=== PATIENT | female | born 1950 | race African-American/Black ===

== ENCOUNTER 2016-12-06 18:59 | Emergency (ER) | payer OTHER ==
[~2016-12-06] VITALS: Ht 175.3 cm; Wt 75.0 kg
[~2016-12-06 18:59] MED LIST: Z.0.NO CURRENT MEDS
[2016-12-06 19:00] VITALS: BP 195/119; PULSE 145; RESP 24; TEMP 98.5; O2SAT 100
[2016-12-06 19:07] VITALS: BP 177/96; PULSE 95; RESP 22; O2SAT 99
--- NOTE | 2016-12-06 19:27 | PD ---
HPI Chief Complaint: Chest Pain Time Seen by Provider: 19:14 Travel History International Travel<30 days: No Contact w/Intl Traveler<30days: No Traveled to known affect area: No History of Present Illness HPI 66-year-old female presents to the emergency department by private transportation for complaint of rapid heart beat and racing of heart just prior to arrival to the emergency department. Patient states around 5 PM she was eating dinner and while sitting outside eating she started feeling her heart racing very fast. Patient did not have any shortness of breath or referred neck jaw shoulder or arm pain and denies any chest pain. Patient denies any previous history of rapid heartbeat or palpitations. Patient states she did have some associated diaphoresis but she was sitting outside and had some mild nausea without vomiting. Patient's had no recent illness. No recent long distance travel protracted bedrest her surgical procedure. No report of lower extremity pain or swelling. Patient states she exercised as usual for her morning without any similar symptomatology. Patient states she takes no prescription medications or routine medications and has no chronic medical illnesses. Patient's had one previous surgery of hysterectomy in the remote past. Patient does not smoke cigarettes does not drink alcohol. Patient denies personal history of palpitations arrhythmia CAD dyslipidemia diabetes or tobaccoism. Patient also denies history of thyroid dysfunction. Patient states she feels much better at this time. Patient states this is atypical for her. PFSH Past Medical History Narrative Medical Medical record reviewed nursing notes reviewed; hypertension, hysterectomy, family history [place], no tobacco use Cardiovascular Problems: No Hypertension: Yes Tetanus Vaccination: Never Vaccinated Influenza Vaccination: No ?: Not Menopausal: Yes Past Surgical History Gynecologic Surgery: Yes (HYST 84) Hysterectomy: Yes Family History Family Myocardial Infarction: Yes (mother @ age 71) Social History Alcohol Use: No Tobacco Use: No Substance Use: No Allergies-Medications (Allergen,Severity, Reaction): Coded Allergies: No Known Allergies (Verified , 09/20/09) Reported Meds & Prescriptions Reported Meds & Active Scripts Active Reported Timolol Opth Drops 0.5 % Soln 1 Drop EACH EYE DAILY Review of Systems Except as stated in HPI: all other systems reviewed are Neg General / Constitutional: No: Fever, Chills HENT: No: Congestion Cardiovascular: Positive: Palpitations, Tachycardia, Diaphoresis, No: Chest Pain or Discomfort, Syncope Respiratory: No: Shortness of Breath Gastrointestinal: Positive: Nausea, No: Vomiting, Diarrhea, Abdominal Pain Genitourinary: No: Flank Pain Neurologic: No: Weakness, Dizziness, Syncope Psychiatric: No: Anxiety Endocrine: No: Heat Intolerance Hematologic/Lymphatic: No: Easy Bruising Physical Exam Narrative GENERAL: SKIN: Warm and dry. HEAD: Atraumatic. Normocephalic. EYES: Pupils equal and round. No scleral icterus. No injection or drainage. ENT: No nasal bleeding or discharge. Mucous membranes pink and moist. NECK: Trachea midline. No JVD. CARDIOVASCULAR: Regular rate and rhythm. RESPIRATORY: No accessory muscle use. Clear to auscultation. Breath sounds equal bilaterally. GASTROINTESTINAL: Abdomen soft, non-tender, nondistended. Hepatic and splenic margins not palpable. MUSCULOSKELETAL: Extremities without clubbing, cyanosis, or edema. No obvious deformities. NEUROLOGICAL: Awake and alert. GCS 15. No obvious cranial nerve deficits. Motor grossly within normal limits. Five out of 5 muscle strength in the arms and legs. Sensory exam grossly intact as tested. No limb ataxia. No pronator drift. Normal speech. PSYCHIATRIC: Appropriate mood and affect; insight and judgment normal. Data Data Last Documented VS Vital Signs Date Time Temp Pulse Resp B/P (MAP) Pulse Ox O2 Delivery O2 Flow Rate FiO2 12/06/16 19:13 100 Room Air 12/06/16 19:07 95 22 177/96 (123) 12/06/16 19:00 98.5 Orders Orders Electrocardiogram (12/06/16 19:23) Basic Metabolic Panel (Bmp) (12/06/16 19:23) Ckmb (Isoenzyme) Profile (12/06/16 19:23) Complete Blood Count With Diff (12/06/16 19:23) Magnesium (Mg) (12/06/16 19:23) Prothrombin Time / Inr (Pt) (12/06/16 19:23) Act Partial Throm Time (Ptt) (12/06/16 19:23) Troponin I (12/06/16 19:23) Chest, Single Ap (12/06/16 19:23) Ecg Monitoring (12/06/16 19:23) Bilateral Bp Monitoring (12/06/16 19:23) Iv Access Insert/Monitor (12/06/16 19:23) Oximetry (12/06/16 19:23) Oxygen Administration (12/06/16 19:23) Sodium Chloride 0.9% Flush (Ns Flush) (12/06/16 19:30) Thyroid Stimulating Hormone (12/06/16 19:23) Orthostatic Vital Signs (12/06/16 19:23) Aspirin Chew (Aspirin Chew) (12/06/16 19:45) CKMB (12/06/16 19:16) CKMB% (12/06/16 19:16) Potassium Chloride (Kcl) (12/06/16 21:00) Labs Laboratory Tests Test 12/06/16 19:16 White Blood Count 8.3 TH/MM3 Red Blood Count 6.31 MIL/MM3 Hemoglobin 13.9 GM/DL Hematocrit 44.3 % Mean Corpuscular Volume 70.2 FL Mean Corpuscular Hemoglobin 22.0 PG Mean Corpuscular Hemoglobin Concent 31.3 % Red Cell Distribution Width 16.4 % Platelet Count 216 TH/MM3 Mean Platelet Volume 9.2 FL Neutrophils (%) (Auto) 39.1 % Lymphocytes (%) (Auto) 47.6 % Monocytes (%) (Auto) 11.7 % Eosinophils (%) (Auto) 1.2 % Basophils (%) (Auto) 0.4 % Neutrophils # (Auto) 3.3 TH/MM3 Lymphocytes # (Auto) 4.0 TH/MM3 Monocytes # (Auto) 1.0 TH/MM3 Eosinophils # (Auto) 0.1 TH/MM3 Basophils # (Auto) 0.0 TH/MM3 CBC Comment DIFF FINAL Differential Comment Prothrombin Time 11.0 SEC Prothromb Time International Ratio 1.0 RATIO Activated Partial Thromboplast Time 28.7 SEC Blood Urea Nitrogen 15 MG/DL Creatinine 1.02 MG/DL Random Glucose 115 MG/DL Calcium Level 9.4 MG/DL Magnesium Level 2.2 MG/DL Sodium Level 138 MEQ/L Potassium Level 3.0 MEQ/L Chloride Level 102 MEQ/L Carbon Dioxide Level 26.7 MEQ/L Anion Gap 9 MEQ/L Estimat Glomerular Filtration Rate 65 ML/MIN Total Creatine Kinase 181 U/L Creatine Kinase MB 1.6 NG/ML Troponin I LESS THAN 0.02 NG/ML Thyroid Stimulating Hormone 3rd Gen 1.770 uIU/ML MDM Medical Decision Making Medical Screen Exam Complete: Yes Emergency Medical Condition: Yes Medical Record Reviewed: Yes Interpretation(s) EKG: Sinus tachycardia rate 103 left atrial enlargement no acute ST elevation or injury pattern change or ectopy noted Last Impressions Chest X-Ray 12/06/16 192 Signed Impressions: Service Date/Time: November 19:43 - CONCLUSION: No evidence of acute cardiopulmonary disease. Yan Hartmann MD CBC & BMP Diagram 12/06/16 19:16 Calcium Level 9.4, Magnesium Level 2.2 Vital Signs Date Time Temp Pulse Resp B/P (MAP) Pulse Ox O2 Delivery O2 Flow Rate FiO2 12/06/16 19:13 100 Room Air 12/06/16 19:07 95 22 177/96 (123) 99 12/06/16 19:00 98.5 145 24 195/119 (144) 100 Room Air CK 181, not elevated; troponin I less than 0.02, not elevated TSH 1.770 within normal range Differential Diagnosis Palpitations, arrhythmia, elect light disturbance, ACS, [place], PE, dehydration, sepsis Narrative Course Patient placed on monitor technician and pulse oximeter IV access obtained specimens collected and sent for resulting; patient is presently in sinus rhythm with rate of 94 on monitor technician stating no longer sensation of palpitations in no discomfort. EKG shows mild sinus tachycardia with a rate of 103 in no acute injury pattern change. Patient's triage vital signs indicate heart rate in triage was 145 bpm. Patient administered aspirin times one dose. Patient informed that EKG shows no acute injury pattern change Patient identified to have hypokalemia 3.0 by by metabolic panel is given potassium oral replacement Patient continues to deny any chest pain, shortness of breath, referred pain, also denies any nausea at this time. Physician Communication Physician Communication discussed with patient's PCP ---will see in the office Diagnosis Primary Impression: Rapid palpitations Additional Impression: Hypokalemia Referrals: Alvaro Byrd MD PhD call for appointment Patient Instructions: General Instructions Additional Instructions: Increase fluid hydration and add potassium containing foods and beverages to dietary intake Follow-up with primary care provider Return to the emergency department for any concerns or change in condition Disposition: 01 DISCHARGE HOME Condition: Stable Pauly Zhu MD Dec 06, 2016 19:27
[2016-12-06] MEDS ORDERED: SODIUM CHLORIDE 0.9% FLUSH 10 ML FLUSH IVF PRN (19:30)
[2016-12-06] MEDS ORDERED: ASPIRIN 81 MG CHEW TAB CHEW ONE (19:45)
[2016-12-06] MEDS ORDERED: TIMO0.5S30 EACH EYE (19:56)
[2016-12-06 20:03] LABS: AUTOMATED NEUTROPHIL # 3.3 TH/MM3 (1.8-7.7); BASOPHIL % 0.4 % (0.0-2.0); EOSINOPHIL # 0.1 TH/MM3 (0-0.4); EOSINOPHIL % 1.2 % (0.0-4.0); HEMATOCRIT 44.3 % (35.0-46.0); HEMO FLAGS DIFF FINAL; LYMPH % 47.6 % (9.0-44.0); MEAN CELL VOLUME 70.2 FL (80.0-100.0); MEAN CORPUSCULAR HGB CONC 31.3 % (32.0-36.0); MONO % 11.7 % (0.0-8.0); NEUT % 39.1 % (16.0-70.0); PLATELET COUNT 216 TH/MM3 (150-450); RED BLOOD COUNT 6.31 MIL/MM3 (4.00-5.30); RED CELL DISTRIBUTION WIDTH 16.4 % (11.6-17.2); WHITE BLOOD COUNT 8.3 TH/MM3 (4.0-11.0)
--- NOTE | 2016-12-06 20:12 | RADRPT ---
EXAM DATE/TIME: 12/06/2016 19:43 [facility] COMPARISON: No previous studies available for comparison. INDICATIONS : Chest pain today. MEDICAL HISTORY : Hypertension. SURGICAL HISTORY : Hysterectomy. ENCOUNTER: Initial ACUITY: 1 day PAIN SCORE: 5/10 LOCATION: Bilateral chest FINDINGS: A single view of the chest demonstrates the lungs to be symmetrically aerated without evidence of mas s, infiltrate or effusion. The cardiomediastinal contours are unremarkable. Thoracic aorta is tortu ous. Osseous structures are intact. CONCLUSION: No evidence of acute cardiopulmonary disease. Yan Hartmann MD on December 06, 2016 at 20:10 Board Certified Radiologist. This report was verified electronically.
[2016-12-06 20:27] LABS: ANION GAP 9 MEQ/L (5-15); BICARBONATE 26.7 MEQ/L (21.0-32.0); BLOOD UREA NITROGEN 15 MG/DL (7-18); CHLORIDE 102 MEQ/L (98-107); GLOMERULAR FILTRATION RATE 65 ML/MIN (>89); MAGNESIUM 2.2 MG/DL (1.5-2.5); SODIUM (NA) 138 MEQ/L (136-145)
[2016-12-06 20:30] LABS: APTT (PATIENT) 28.7 SEC (24.3-30.1)
[2016-12-06 20:33] LABS: CREATINE KINASE 181 U/L (26-192)
[2016-12-06 20:45] LABS: CKMB 1.6 NG/ML (0.5-3.6)
[2016-12-06 20:52] VITALS: BP 163/92; PULSE 84; RESP 20; O2SAT 98; O2SAT 99
[2016-12-06] MEDS ORDERED: POTASSIUM CHLORIDE 20 MEQ CONTROLLED RELEASE TAB PO ONE (21:00)
--- NOTE | 2016-12-07 10:24 | EKG ---
Date Performed: 12/06/2016 Time Performed: 19:08:21 PTAGE: 66 years EKG: SINUS TACHYCARDIA LEFT ATRIAL ENLARGEMENT MINIMAL ST DEPRESSION ABNORMAL ECG PREVIOUS TRACING : 09/19/2009 22.31 Compared to prior tracing no significant change DOCTOR: Jonathan Dooley Interpretating Date/Time 12/07/2016 10:19:16
== END 2016-12-06 21:20 | disposition home or self-care (01) ==
LOC: NEPC 18:59
DX: R00.2 Palpitations (principal); E87.6 Hypokalemia; R00.0 Tachycardia, unspecified; R61 Generalized hyperhidrosis; R11.0 Nausea; R94.31 Abnormal electrocardiogram [ECG] [EKG]; I10 Essential (primary) hypertension
CPT/HCPCS: 71010; 80048; 82550; 82552; 83735; 84443; 84484; 85025; 85610; 85730; 93005; 99285